=== PATIENT | male | born 1990 | race Caucasian/White ===

== ENCOUNTER 2023-01-10 13:09 | Outpatient (CLI) | payer BC ==
[~2023-01-10 13:09] MED LIST: Iopamidol 370 76% 100 ML VIAL ONE
== END 2023-01-10 13:10 | disposition home or self-care (01) ==
LOC: BICCT 13:09
PROVIDERS: ATTEND Family Medicine
DX: R10.84 Generalized abdominal pain (principal); K76.0 Fatty (change of) liver, not elsewhere classified; R16.0 Hepatomegaly, not elsewhere classified; J90 Pleural effusion, not elsewhere classified
CPT/HCPCS: 74178; Q9967

== ENCOUNTER 2023-01-15 13:13 | Outpatient (CLI) | payer BC | END 2023-01-15 13:14 | disposition home or self-care (01) | LOC: BICRAD 13:13 | PROVIDERS: ATTEND Family Medicine | DX: J90 Pleural effusion, not elsewhere classified (principal) | CPT/HCPCS: 36415; 71046; 80053; 82306; 83615; 83880; 85025; 86038; 86140; 86225 ==